=== PATIENT | male | born 1990 | race Two or more races ===

== ENCOUNTER 2018-10-13 13:09 | Emergency (ER) | payer MEDICAID ==
[~2018-10-13] VITALS: Ht 177.8 cm; Wt 86.2 kg
[2018-10-13 13:45] VITALS: BP 138/79
[2018-10-13] MEDS ORDERED: Lidocaine 1% Plain 30 ml INJ ONE (13:45)
--- NOTE | 2018-10-13 13:45 | NUR ---
ED Nurse Note: Patient walked into ER due to right lopez laceration. AAO x4, VSS at this time.
[2018-10-13] MEDS ORDERED: IBU800 MG PO (15:42)
[2018-10-13] MEDS ORDERED: CEPHALEXIN500 MG ORAL (15:42)
--- NOTE | 2018-10-13 15:42 | Emergency Room Report ---
History of Present Illness General Chief Complaint: Laceration Source: Patient Present Illness HPI 28-year-old male with no significant past medical history here complaining of left elbow and right knee. Patient reports that he was sitting down letter as he caught himself from falling however his knee had one of the cyst on the ladder and caused a laceration. Patient rating pain 7 out of 10 with radiation has full range of motion and pain no motor or sensory. Pain. Is up-to-date with his tetanus shot. Denies all other injuries, head trauma, loss of consciousness. Denies history of diabetes and all other immunocompromised status. Allergies: Coded Allergies: No Known Allergies (Unverified , 10/13/18) Patient History Past Medical History: see triage record Past Surgical History: unable to obtain Pertinent Family History: none Immunizations: UTD Reviewed Nursing Documentation: PMH: Agreed; PSxH: Agreed Nursing Documentation-PMH Past Medical History: No Stated History Review of Systems All Other Systems: negative except mentioned in HPI Physical Exam Vital Signs Date Time Temp Pulse Resp B/P (MAP) Pulse Ox O2 Delivery O2 Flow Rate FiO2 10/13/18 13:31 99.0 76 16 138/79 (98) 97 Room Air Sp02 EP Interpretation: reviewed, normal General Appearance: no apparent distress, alert, GCS 15, non-toxic Head: normocephalic, atraumatic Eyes: bilateral eye normal inspection, bilateral eye PERRL ENT: hearing grossly normal, normal pharynx, no angioedema, normal voice Neck: full range of motion, supple/symm/no masses Respiratory: chest non-tender, lungs clear, normal breath sounds, speaking full sentences Cardiovascular #1: regular rate, rhythm, no edema, no murmur Cardiovascular #2: 2+ dorsalis pedis (R), 2+ dorsalis pedis (L) Gastrointestinal: normal bowel sounds, non tender, soft, non-distended, no guarding, no rebound Genitourinary: normal inspection, no CVA tenderness Musculoskeletal: back normal, digits/nails normal, gait/station normal, normal range of motion, no calf tenderness, other - Laceration right proximal tib-fib Neurologic: alert, oriented x3, responsive Psychiatric: judgement/insight normal, memory normal, mood/affect normal, no suicidal/homicidal ideation Skin: laceration - Laceration into the dermis right proximal tib-fib Lymphatic: no adenopathy Procedures Laceration/Wound Repair Laceration/Wound Repair : Consent: Verbal Wound Location: lower extremity - Right proximal tib-fib Wound's Depth, Shape: superficial Wound Length (cm): 3 Wound Explored: contaminated Betadine Prep?: Yes Anesthesia: 1% Lidocaine Volume Anesthetic (ccs): 10 Wound Debrided: minimal Wound Repaired With: sutures Suture Size/Type: 4:0, nylon, other Number of Sutures: 20 Layer Closure?: Yes Sterile Dressing Applied?: Yes Splint Applied?: No Sling Applied?: No Patient Tolerated: Well Complications: None Medical Decision Making PA Attestation All my diagnosis and treatment plans were reviewed ad discussed with my supervising physician Dr. Mitchell Diagnostic Impression: Primary Impression: Laceration of right lower leg ER Course 28-year-old male with no significant past medical history here complaining of left elbow and right knee. Patient reports that he was sitting down letter as he caught himself from falling however his knee had one of the cyst on the ladder and caused a laceration. Patient rating pain 7 out of 10 with radiation has full range of motion and pain no motor or sensory. Pain. Is up-to-date with his tetanus shot. Denies all other injuries, head trauma, loss of consciousness. Denies history of diabetes and all other immunocompromised status. Ddx considered but are not limited to : Superficial laceration, deep laceration , tendon involvement with laceration, laceration with foreign body Vital signs: are WNL, pt. is afebrile H&PE are most consistent with: Laceration into the dermis of the right lower extremity ORDERS: Ibuprofen, Keflex, right tib-fib x-ray ED INTERVENTIONS: Wound closure DISCHARGE: At this time pt. is stable for d/c to home. Will provide printed patient care instructions, and any necessary prescriptions. Care plan and follow up instructions have been discussed with the patient prior to discharge. Proper wound care was advised patient to return here for suture removal in 7 to 10 days Lidocaine was used for numbing, sutures applied after wound was properly cleaned , propper imaging was ordered prior to closure of wound, nonadhesive dressing was applied, sensation was intact, pt was advised to follow up with pcp in 7-10 days for removal of sutures. Other X-Ray Diagnostic Results Other X-Ray Diagnostic Results : X-Ray ordered: Right tib-fib # of Views/Limited Vs Complete: 2 View Indication: Pain EP Interpretation: Yes PA Xray: Interpretation reviewed, by supervising MD, and agrees with findings. Interpretation: no dislocation, no soft tissue swelling, no fractures, other - No foreign body Impression: No acute disease Electronically Signed by: Arturo Davidson PA-C Last Vital Signs Date Time Temp Pulse Resp B/P (MAP) Pulse Ox O2 Delivery O2 Flow Rate FiO2 10/13/18 13:45 99.0 16 138/79 97 Room Air 10/13/18 13:31 76 Disposition: HOME, SELF-CARE Condition: Stable Scripts Ibuprofen (Ibu) 800 Mg Tablet 800 MG PO TID, #30 TAB Prov: Arturo Gambino 10/13/18 Cephalexin* (KEFLEX*) 500 Mg Capsule 500 MG ORAL EVERY 6 HOURS for 7 Days, #28 CAP Prov: Arturo Gambino 10/13/18 Patient Instructions: Laceration Care, Adult Additional Instructions: Take medication as directed follow-up with your primary care provider return to the emergency room in 7 to 10 days for suture removal Arturo Gambino Oct 13, 2018 15:42
[2018-10-13 15:50] VITALS: BP 145/75
--- NOTE | 2018-10-13 15:50 | NUR ---
ED Nurse Note: Pt cleared by health care Provider for discharge. DC instructions/prescription was given and explained to pt and verbalized understanding of teachings. All medical deviecs such as ID band removed. Pt is AAO x4, ambulatory and left with all personal belongings.
--- NOTE | 2018-10-14 10:44 | Diagnostic Imaging Report ---
Indication: right leg pain Comparison: None Findings: Two views of the right tibia and fibula were obtained. No acute fracture, malalignment, or periosteal reaction are identified. Soft tissues are unremarkable. Impression: Negative examination of the tibia and fibula
== END 2018-10-13 15:50 | disposition home or self-care (01) ==
LOC: EMR 15:40
DX: S81.811A Laceration without foreign body, right lower leg, initial encounter (principal); W22.8XXA Striking against or struck by other objects, initial encounter; Y92.9 Unspecified place or not applicable
CPT/HCPCS: 12002; 73590; 99283; J2001; Z7502